=== PATIENT | female | born 1985 ===

== ENCOUNTER 2019-10-31 16:38 | Emergency (ER) | payer BC ==
--- OUTSIDE RECORDS SUMMARY | 2019-10-31 16:47 | XMS REPORT | Summary of Care ---
:1985 Author Organization [facility] Address [address] [facility] [place] [address] Care Team Providers Name Role Phone China Bean [facility] Primary Care Provider Reason for Visit Reason Comments Referral Sinus Problem for 2 weeks. Encounter Details Date Type Department Care Team Description 09/26/2019 Office Visit [facility] [place] Acute pharyngitis, unspecified etiology (Primary Dx); [address] WOODY Atkinson Mild persistent asthma without complication; [place] [address] [address] Acute bacterial sinusitis; [phone] Osteoarthritis of spine with radiculopathy, [place] [address] [phone] Allergies No Known Allergiesdocumented as of this encounter (statuses as of 09/26/2019) Medications Medication Sig Dispensed Refills Start End Status Date Date Levonorgestrel by Intrauterine 0 Active (MIRENA) 20 MCG/24HR route. Intrauterine IUD fluticasone (FLOVENT Take 2 Puffs by 1 Inhaler 5 03/15/20 Active HFA) 110 MCG/ACT inhalation 19 Inhalation TWICE DAILY. AerosolIndications: Mild persistent asthma without complication montelukast Take 1 Tab by 90 Tab 3 03/15/20 Active (SINGULAIR) 10 MG Oral mouth DAILY. 19 TabIndications: Mild persistent asthma without complication, Chronic seasonal allergic rhinitis hydrochlorothiazide Take 1 Tab by 90 Tab 1 04/22/20 Active (HCTZ, ORETIC) 25 MG mouth DAILY. 19 Oral TabIndications: Elevated blood pressure reading in office without diagnosis of hypertension, HTN (hypertension), benign albuterol HFA Take 2 Puffs by 3 Inhaler 3 09/26/20 Active (VENTOLIN HFA) 108 (90 inhalation 19 Base) MCG/ACT EVERY FOUR Inhalation Aero HOURS NEEDED SolnIndications: Mild (wheezing). persistent asthma without complication cyclobenzaprine Take 1 Tab by 30 Tab 0 09/26/20 Active (FLEXERIL) 10 MG Oral mouth THREE 19 TabIndications: TIMES DAILY. Osteoarthritis of spine with radiculopathy, cervical region nabumetone (RELAFEN) Take 1 Tab by 20 Tab 0 09/26/20 Active 500 MG Oral mouth TWICE 19 019 TabIndications: DAILY for 10 Osteoarthritis of days. spine with radiculopathy, cervical region Amoxicillin 500 MG Take 1 Tab by 20 Tab 0 09/26/20 Active Oral TabIndications: mouth TWICE 19 019 Acute pharyngitis, DAILY for 10 unspecified etiology, days. Acute bacterial sinusitis albuterol HFA Take 2 Puffs by 3 Inhaler 3 03/15/20 Discontinued (VENTOLIN HFA) 108 (90 inhalation 19 019 (Reorder) Base) MCG/ACT EVERY FOUR Inhalation Aero HOURS NEEDED SolnIndications: Mild (wheezing). persistent asthma without complication meloxicam (MOBIC) 7.5 Take 1 Tab by 60 Tab 1 08/26/20 Discontinued MG Oral Tab mouth TWO TIMES 19 019 DAILY NEEDED (pain). tizanidine (ZANAFLEX) Take 1 Tab by 90 Tab 1 08/26/20 Discontinued 4 MG Oral Tab mouth THREE 19 019 TIMES DAILY NEEDED (muscle spasm). documented as of this encounter (statuses as of 09/26/2019) Active Problems Problem Noted Date Osteoarthritis of spine with radiculopathy, cervical region 09/26/2019 HTN (hypertension), benign 04/22/2019 Overview: 02/2019 Seasonal allergies 10/02/2007 Asthma 10/02/2007 documented as of this encounter (statuses as of 09/26/2019) Immunizations Name Administration Dates Next Due DTAP Vaccine 03/24/1989, 08/10/1985 DTP 05/28/1984, 03/26/1984, 01/22/1984 Hepatitis B Vaccine 05/30/1999, 02/05/1996, 01/04/1996 MMR 12/20/1991, 02/28/1985 Meningococcal Vaccine 06/17/2002 OPV 03/24/1989, 07/10/1985, 03/26/1984, 01/22/1984 TETANUS & DIPHTHERIA TOXOID (OVER 7 07/29/2011 YRS) dT Vaccine 04/16/1995 documented as of this encounter Social History Tobacco Use Types Packs/Day Years Used Date Passive Smoke Exposure - Never Cigarettes 0 6 Started: 12/16/2011 Smoker Smokeless Tobacco: Never Used Alcohol Use Drinks/Week oz/Week Comments Yes 3 Standard drinks or equivalent 3.0 Weekends Sex Assigned at Date Recorded Not on file Job Start Date Occupation Industry Not on file Not on file Not on file Travel History Travel Start Travel End No recent travel history available. documented as of this encounter Last Filed Vital Signs Vital Sign Reading Time Taken Comments Blood Pressure 138/90 09/26/2019 11:49 AM EST Pulse 92 09/26/2019 11:49 AM EST Temperature 37.2 09/26/2019 11:49 AM C (98.9 EST F) Respiratory Rate 20 09/26/2019 11:49 AM EST Oxygen Saturation 99% 09/26/2019 11:49 AM EST Inhaled Oxygen Concentration - - Weight 85.1 kg (187 lb 11.2 oz) 09/26/2019 11:49 AM EST Height - - Body Mass Index 26.93 03/15/2019 9:28 AM EDT documented in this encounter Progress Notes China Bean FNP-BC - 09/26/2019 11:20 AM EST Demetria Del Angel [id number] 1985 09/26/2019 PCP: China Bean Chief Complaint Patient presents with Referral Sinus Problem for 2 weeks. HPI: Demetria Del Angel is a 33-y.o. female who presents today for follow-up with PCP for neck pain. 08/12/2019 she was seen by another provider in this office for left shoulder pain. The pain was suspected to be radicular and she had x-rays and treatment with Medrol Dosepak and muscle relaxants with gentle stretching recommended. There was some suspicion of rotator cuff involvement in the left shoulder. On 08/26/2019 she again followed up with the other provider in the office. Symptoms had improved and she found benefit from the steroid. MRI was ordered of the cervical spine and she was referred to physical therapy XR cervical spine IMPRESSION No evidence of fracture, or subluxation is seen. Reversal of cervical lordosis. MRI cervical spine: Again seen is straightening of the normal lordotic curvature in the cervical spine with reversal of the normal lordotic curvature at C4-C5. Cervical vertebral bodies demonstrate normal height and signal intensity. Craniocervical junction within normal limits. Cervical cord demonstrates normal signal intensity C2-C3: Disc unremarkable. No central nor foreign stenosis C3-C4: Disc desiccation. Shallow mixed spondylotic disc displacement. Partial effacement of the ventral subarachnoid space. No central nor foraminal stenosis. C4-C5: The level of dominant finding. Mixed spondylotic disc displacement with effacement of the ventral subarachnoid space and with mass effect on the cord, borderline cord compression, normal cord signal. Uncovertebral joint hypertrophy and bilateral foraminal stenosis. C5-C6, C6-C7: disc desiccation, shallow mixed spondylotic disc displacement, uncovertebral joint hypertrophy, and mild bilateral foraminal stenosis C7-T1: The level of codominant finding. Posterior left paracentral mixed spondylotic disc displacement, extending to the neural foramina, with left neural foraminal stenosis. Sh econ with with some benefit but still has left shooting left arm pain - can range from upper armto just shoulder - She has had sinus symptoms x a couple wekek s- she reports that the past 3 days have been wors eiwthchills, sore throat, she is medicating with over the counter medications -- nasal congestion , positive facial pain and pressure -- coughing up greenish yellow, no wheezing, positive fatigue -- She is Not sick often Patient Active Problem List Diagnosis Seasonal allergies Asthma HTN (hypertension), benign Osteoarthritis of spine with radiculopathy, cervical region Past Medical History: Diagnosis Date HTN (hypertension), benign 04/22/2019 Seasonal allergies 10/02/2007 Unspecified asthma(493.90) 10/02/2007 Current Medications: Current Outpatient Medications Medication albuterol HFA (VENTOLIN HFA) 108 (90 Base) MCG/ACT Inhalation Aero Soln fluticasone (FLOVENT HFA) 110 MCG/ACT Inhalation Aerosol hydrochlorothiazide (HCTZ, ORETIC) 25 MG Oral Tab Levonorgestrel (MIRENA) 20 MCG/24HR Intrauterine IUD meloxicam (MOBIC) 7.5 MG Oral Tab montelukast (SINGULAIR) 10 MG Oral Tab tizanidine (ZANAFLEX) 4 MG Oral Tab No Known Allergies Social History Tobacco Use Smoking status: Passive Smoke Exposure - Never Smoker Smokeless tobacco: Never Used Substance Use Topics Alcohol use: Yes Alcohol/week: 3.0 standard drinks Types: 3 Standard drinks or equivalent per week Comment: Weekends Drug use: Yes Types: Marijuana Comment: occassionally, 1x monthly Family History Problem Relation Age of Onset Thyroid Mother Hypertension Father Hypertension Brother Breast Cancer Paternal Aunt Cancer Maternal Grandmother bone Cancer Paternal Grandmother Family Status Relation Name Status Mo Alive Fa Alive Sis older Alive Bro older Alive Bro older Alive Bro older Alive PAunt (Not Specified) MGMo (Not Specified) PGMo (Not Specified) I have reviewed the patients allergies, past medical, surgical and family history with the patient. These were updated on 09/26/2019 12:59. No results found for this visit on 09/26/19. ROS: As per HPI, a comprehensive review of systems was otherwise negative. PE: BP 138/90 | Pulse 92 | Temp 98.9 F (37.2 C) | Resp 20 | Wt 187 lb 11.2 oz (85.1 kg) | SpO2 99% | BMI 26.93 kg/m CONST: Appears well, no distress, cooperative NEURO: alert, oriented, normal speech, no focal findings or movement disorder noted HEENT:Atraumatic, normocephalic,PERRLA and EOM's intact,conjunctiva pale, sclerae noninjected, bilateral TM's and external ear canals normal, nares normal and patent, no erythema, discharge or polyps, erythematous and tonsils hypertrophied with exudate, maxillary and frontal sinuses non tender to palpation NECK: full ROM, supple, no significant adenopathy CHEST: regular rate and rhythm, S1, S2 normal, no murmur, click, rub or gallop, clear to auscultation, no wheezes or rales and unlabored breathing ASSESSMENT/PLAN: Payal was seen today for referral and sinus problem. Diagnoses and all orders for this visit: Acute pharyngitis, unspecified etiology - TAKE amoxicillin 500 MG Oral Tab; Take 1 Tab by mouth TWICE DAILY for 10 days. The potential side effects of this medication have been discussed with the patient. Call if any significant problems with these are experienced. Mild persistent asthma without complication - REFILL REQUESTED albuterol HFA (VENTOLIN HFA) 108 (90 Base) MCG/ACT Inhalation Aero Soln; Take 2 Puffs by inhalation EVERY FOUR HOURS NEEDED ( wheezing). Acute bacterial sinusitis - TAKE amoxicillin 500 MG Oral Tab; Take 1 Tab by mouth TWICE DAILY for 10 days. Osteoarthritis of spine with radiculopathy, cervical region we will switch up anti-inflammatory and muscle relaxant see if we get improved relief of her symptoms while she waits for appointment with neurosurgery. - TAKE cyclobenzaprine (FLEXERIL) 10 MG Oral Tab; Take 1 Tab by mouth THREE TIMES DAILY. Patient advised not to operate heavy equipment, machinery or vehicle while taking muscle relaxant. -take nabumetone (RELAFEN) 500 MG Oral Tab; Take 1 Tab by mouth TWICE DAILY for 10 days. Risks associated with NSAID use reviewed Follow up prn Diagnosis and care plan discussed at length with patient is in agreement with this plan. and voices understanding with all questions answered. There are no Patient Instructions on file for this visit. WOODY Otoole 09/26/2019 12:59 documented in this encounter Plan of Treatment Date Type Specialty Care Team Description 10/03/2019 Office Visit Neurosurgery Camilo Otto MD [address] [place] [address] [phone] Health Maintenance Due Date Last Done Comments PAP SMEAR 06/20/2019 06/20/2016, 06/20/2016, 11/22/2014, Additional history exists DEPRESSION SCREENING 03/15/2020 03/15/2019 HIV SCREENING 03/15/2020 Postponed from 1998 (Patient refused) PNEUMOCOCCAL 0-64 YRS (1 of 03/27/2020 Postponed from 1 - PPSV23) 1989 (Other) MENINGOCOCCAL VACCINE IMM Aged Out 06/17/2002 No longer eligible based on patient's age to complete this topic HPV IMMUNIZATION SERIES Aged Out No longer eligible based on patient's age to complete this topic documented as of this encounter Goals Goal Patient Goal Associated Recent Patient-Stated? Author Type Problems Progress Blood Pressure Blood Pressure 138/90 No [place], < 140/90 (09/26/2019 [place], 11:49 AM EST) [facility]- Note: This is an individualized treatment (blood pressure) goal for Demetria Del Angel: Displayed above (on the left) is your goal for blood pressure control. Your most recent blood pressure is also shown above, on the right. You should try to achieve blood pressures that are lower than your goal listed above (on the left). Take all prescribed medications as Self-management No China Bean , [facility]- directed Note: This is an individualized self-management goal for Demetria Del Angel: Please take all prescribed medications as directed. 1. Do not skip doses. If you cannot afford your medications, talk with your doctor. 2. Use a pill reminder system such as a pill box if needed. Your pharmacist can help you with this. 3. Contact your Pharmacy 5 days before your medication runs out. If you cannot take your medications for any reasons, talk with your doctor. 4. Please bring all of your medication bottles and inhalers (or a list of all your medications/inhalers) with you to every visit. Potential barriers to meeting all of your care plan goals will continue to be addressed on an ongoing basis. documented as of this encounter Results Not on filedocumented in this encounter Visit Diagnoses Diagnosis Acute pharyngitis, unspecified etiology - Primary Mild persistent asthma without complication Unspecified asthma Acute bacterial sinusitis Acute sinusitis, unspecified Osteoarthritis of spine with radiculopathy, cervical region documented in this encounter Insurance Payer Benefit Plan / Subscriber ID Effective Dates Phone Address Type Group [employer] xxxxxxxxxxxx 2017-Present [employer] Name Account Type Relation to Date of Phone Billing Address Patient Demetria Del Angel Personal/Famil 1985 [address] ([address]) [address] [phone] [facility] (Work) [place] [phone] documented as of this encounter"
--- OUTSIDE RECORDS SUMMARY | 2019-10-31 16:47 | XMS REPORT | Summary of Care ---
:1985 Author Organization [facility] Address [address] [place] [address] Care Team Providers Name Role Phone China Bean [facility] Primary Care Provider Encounter Details Date Type Department Care Team Description 10/03/2019 Hospital Encounter [facility] Out[facility] [address] [address] Allergies No Known Allergiesdocumented as of this encounter (statuses as of 10/05/2019) Medications Medication Sig Dispensed Refills Start Date End Date Status Levonorgestrel (MIRENA) by Intrauterine 0 Active 20 MCG/24HR Intrauterine route. IUD fluticasone (FLOVENT Take 2 Puffs by 1 Inhaler 5 03/15/2019 Active HFA) 110 MCG/ACT inhalation TWICE Inhalation DAILY. AerosolIndications: Mild persistent asthma without complication montelukast (SINGULAIR) Take 1 Tab by 90 Tab 3 03/15/2019 Active 10 MG Oral mouth DAILY. TabIndications: Mild persistent asthma without complication, Chronic seasonal allergic rhinitis hydrochlorothiazide Take 1 Tab by 90 Tab 1 04/22/2019 Active (HCTZ, ORETIC) 25 MG mouth DAILY. Oral TabIndications: Elevated blood pressure reading in office without diagnosis of hypertension, HTN (hypertension), benign albuterol HFA (VENTOLIN Take 2 Puffs by 3 Inhaler 3 09/26/2019 Active HFA) 108 (90 Base) inhalation EVERY MCG/ACT Inhalation Aero FOUR HOURS SolnIndications: Mild NEEDED persistent asthma (wheezing). without complication cyclobenzaprine Take 1 Tab by 30 Tab 0 09/26/2019 Active (FLEXERIL) 10 MG Oral mouth THREE TIMES TabIndications: DAILY. Osteoarthritis of spine with radiculopathy, cervical region Amoxicillin 500 MG Oral Take 1 Tab by 20 Tab 0 09/26/2019 Active TabIndications: Acute mouth TWICE DAILY 9 pharyngitis, unspecified for 10 days. etiology, Acute bacterial sinusitis diclofenac (VOLTAREN) 75 Take 1 Tab by 20 Tab 0 09/27/2019 Active MG Oral Tab mouth TWICE DAILY 9 ECIndications: for 10 days. with Osteoarthritis of spine food with radiculopathy, cervical region gabapentin (NEURONTIN) Take 1 Cap by 90 Cap 0 10/03/2019 Active 300 MG Oral Cap mouth THREE TIMES DAILY. documented as of this encounter (statuses as of 10/05/2019) Active Problems Problem Noted Date Osteoarthritis of spine with radiculopathy, cervical region 09/26/2019 HTN (hypertension), benign 04/22/2019 Overview: 02/2019 Seasonal allergies 10/02/2007 Asthma 10/02/2007 documented as of this encounter (statuses as of 10/05/2019) Immunizations Name Administration Dates Next Due DTAP [...] of this encounter Last Filed Vital Signs Not on filedocumented in this encounter Plan of Treatment Date Type Specialty Care Team Description 10/24/2019 Office Visit Neurosurgery Camilo Otto MD [address] [place] [address] [phone] Health Maintenance Due Date Last Done Comments [...] Type Problems Progress Blood Pressure Blood Pressure 130/76 No [place], < 140/90 (10/03/2019 [place], 1:58 PM EST) [employer] Note: This is an individualized treatment (blood [...] medications as Self-management No China Bean , [employer] directed Note: This is an individualized self-management [...] ongoing basis. documented as of this encounter Procedures Procedure Name Priority Date/Time Associated Diagnosis Comments XR CERVICAL SPINE 3 Routine 10/03/2019 2:45 PM Neck pain Results for this VIEWS OR LESS EST procedure are in the results section. documented in this encounter Results XR CERVICAL SPINE 3 VIEWS OR LESS (10/03/2019 2:45 PM EST) Specimen Impressions Performed At No evidence of fracture, or subluxation is seen. Reversal of cervical lordosis. On Flexion and extension views the spine appears stable. Urgency: Routine. This is a routine medical imaging report. Recommendation: No specific imaging recommendation. Signed by Kylah Irving MD, MHA, FCPS on 10/04/2019 12:40 AM Narrative Performed At Procedure(s): XR CERVICAL SPINE 3 VIEWS OR LESS Date of service: 10/03/2019 2:35 PM Provided clinical information: 33 years, Female, "pain. Lateral and flex ex" Procedure and materials: Standard protocol. Comparison studies: MRI of the cervical spine 09/05/2019 Technique: Frontal, lateral, oblique, odontoid views of the cervical spine were obtained. Findings: Vertebral height and alignment appear unremarkable on lateral view. Reversal of cervical lordosis is seen. No evidence of fracture, or subluxation. On Flexion and extension views the spine appears stable. Odontoid view is adequate and normal. Lateral masses of C1 are normally oriented relative to the body of C2. Normal alignment of facet joints and no splaying of spinous processes. The prevertebral soft tissues are normal. Airway is patent. Procedure Note Interface, Rad Results - 10/04/2019 12:42 AM EST Procedure(s): XR CERVICAL SPINE 3 VIEWS OR LESS Date of service: 10/03/2019 2:35 PM Provided clinical information: 33 years, Female, "pain. Lateral and flex ex" Procedure and materials: Standard protocol. Comparison studies: MRI of the cervical spine 09/05/2019 Technique: Frontal, lateral, oblique, odontoid views of the cervical spine were obtained. Findings: Vertebral height and alignment appear unremarkable on lateral view. Reversal of cervical lordosis is seen. No evidence of fracture, or subluxation. On Flexion and extension views the spine appears stable. Odontoid view is adequate and normal. Lateral masses of C1 are normally oriented relative to the body of C2. Normal alignment of facet joints and no splaying of spinous processes. The prevertebral soft tissues are normal. Airway is patent. IMPRESSION No evidence of fracture, or subluxation is seen. Reversal of cervical lordosis. On Flexion and extension views the spine appears stable. Urgency: Routine. This is a routine medical imaging report. Recommendation: No specific imaging recommendation. Signed by Kylah Irving MD, MHA, FCPS on 10/04/2019 12:40 AM documented in this encounter Visit Diagnoses Diagnosis Neck pain Cervicalgia documented in this encounter Insurance Payer Benefit Plan / Subscriber ID Effective Dates Phone Address Type Group [facility] 2017-Present [employer] Guarantor Name Account Type Relation to Date of Phone Billing Address Patient Demetria Del Angel Personal/Famil 1985 [phone] [address] (Home) [phone] [place], ([place]) [place] [id number] documented as of this encounter
--- OUTSIDE RECORDS SUMMARY | 2019-10-31 16:47 | XMS REPORT | Summary of Care ---
:1985 Author Organization [facility] Address 1 [facility] [place] [address] Care Team Providers Name Role Phone China Baen SOLAR DEVELOPMENT ENGINEER- Primary Care Provider Reason for Visit Reason Comments Follow Up neck pain/left shoulder pain Encounter Details Date Type Department Care Team Description 10/24/2019 Office Visit [facility] Neurosurgery [place], Cervical disc [address] [facility] MD Camilo displacement ([place] [address] 1 [facility] Dx) [phone] [place] [address] [phone] Allergies No Known Allergiesdocumented as of this encounter (statuses as of 10/24/2019) Medications Medication Sig Dispensed Refills Start End [...] Osteoarthritis of spine with radiculopathy, cervical region gabapentin (NEURONTIN) Take 1 Cap by 90 Cap 0 10/24/20 Active 300 MG Oral Cap mouth THREE 19 TIMES DAILY. gabapentin (NEURONTIN) Take 1 Cap by 90 Cap 0 10/03/20 Discontinued 300 MG Oral Cap mouth THREE 19 019 (Reorder) TIMES DAILY. documented as of this encounter (statuses as of 10/24/2019) Active Problems Problem Noted Date Osteoarthritis of spine with radiculopathy, cervical region 09/26/2019 HTN (hypertension), benign 04/22/2019 Overview: 02/2019 Seasonal allergies 10/02/2007 Asthma 10/02/2007 documented as of this encounter (statuses as of 10/24/2019) Immunizations Name Administration Dates Next Due DTAP [...] Sign Reading Time Taken Comments Blood Pressure 128/72 10/24/2019 9:00 AM EST Pulse - - Temperature - - Respiratory Rate - - Oxygen Saturation - - Inhaled Oxygen Concentration - - Weight 86.6 kg (191 lb) 10/24/2019 9:00 AM EST Height 177.8 cm (5' 10") 10/24/2019 9:00 AM EST Body Mass Index 27.41 10/24/2019 9:00 AM EST documented in this encounter Progress Notes Camilo Otto MD - 10/24/2019 8:50 AM EST PATIENT: Demetria Del Angel : 1985 DATE OF SERVICE: 10/24/2019 REFERRING PRACTITIONER: Camilo Otto PRIMARY CARE PROVIDER: China Bean CHIEF COMPLAINT: Chief Complaint Patient presents with Follow Up neck pain/left shoulder pain HISTORY OF PRESENT ILLNESS: Mrs. 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 Fortunately most of her symptoms have improved with gabapentin. She is continuing to do the neck stretches at home and will continue with physical therapy in the coming weeks. She seems pleased with the result thus far and I would like to see her back in 6 weeks. Past Medical History: Diagnosis Date HTN (hypertension), benign 04/22/2019 Seasonal allergies 10/02/2007 Unspecified asthma(493.90) 10/02/2007 History reviewed. No pertinent surgical history. Family History Problem Relation Age of Onset Thyroid Mother Hypertension Father Hypertension Brother Breast Cancer Paternal Aunt Cancer Maternal Grandmother bone Cancer Paternal Grandmother Social History Socioeconomic History Marital status: Single Spouse name: Not on file Number of children: Not on file Years of education: Not on file Highest education level: Not on file Occupational History Not on file Social Needs Financial resource strain: Not on file Food insecurity: Worry: Not on file Inability: Not on file Transportation needs: Medical: Not on file Non-medical: Not on file Tobacco Use Smoking status: Passive Smoke Exposure - Never Smoker Smokeless tobacco: Never Used Substance and Sexual Activity Alcohol use: Yes Alcohol/week: 3.0 standard drinks Types: 3 Standard drinks or equivalent per week Comment: Weekends Drug use: Yes Types: Marijuana Comment: occassionally, 1x monthly Sexual activity: Yes Partners: Male control/protection: I.U.D. Lifestyle Physical activity: Days per week: Not on file Minutes per session: Not on file Stress: Not on file Relationships Social connections: Talks on phone: Not on file Gets together: Not on file Attends nondenominational service: Not on file Active member of club or organization: Not on file Attends meetings of clubs or organizations: Not on file Relationship status: Not on file Intimate partner violence: Fear of current or ex partner: Not on file Emotionally abused: Not on file Physically abused: Not on file Forced sexual activity: Not on file Other Topics Concern Back Care Not Asked Bike Helmet Not Asked Blood Transfusions Not Asked Caffeine Concern Not Asked Exercise Not Asked Hobby Hazards Not Asked International Travel Not Asked Service Not Asked Occupational Exposure Not Asked Seat Belt Not Asked Self-Exams Not Asked Sleep Concern Not Asked Special Diet Not Asked Stress Concern Not Asked Weight Concern Not Asked Social History Narrative Single -- SO male -- lives with 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 Psychological ROS: negative Ophthalmic ROS: negative ENT ROS: negative Hematological and Lymphatic ROS: negative Endocrine ROS: negative Respiratory ROS: no cough, shortness of breath, or wheezing Cardiovascular ROS: no chest pain or dyspnea on exertion Gastrointestinal ROS: no abdominal pain, change in bowel habits, or black or bloody stools Genito-Urinary ROS: negative Musculoskeletal ROS: negative Neurological ROS: negative IMPRESSION / PLAN: ICD-9-CM ICD-10-CM 1. Cervical disc displacement 722.0 M50.20 Author: Camilo Otto MD 10/24/2019 09:13 documented in this encounter Plan of Treatment Date Type Specialty Care Team Description 12/05/2019 Office Visit Neurosurgery Camilo Otto MD 1 [place] [address] [phone] Health Maintenance Due Date Last Done Comments [...] Type Problems Progress Blood Pressure Blood Pressure 128/72 No [place], < 140/90 (10/24/2019 [place], 9:00 AM EST) SOLAR DEVELOPMENT ENGINEER-BC Note: This is an individualized treatment (blood [...] medications as Self-management No China Bean , SOLAR DEVELOPMENT ENGINEER-BC directed Note: This is an individualized self-management [...] filedocumented in this encounter Visit Diagnoses Diagnosis Cervical disc displacement - Primary Displacement of cervical intervertebral disc without myelopathy documented in this encounter Insurance Payer Benefit Plan / Subscriber ID Effective Dates Phone Address Type Group LIZZ AHUMADABS LIZZ AHUMADABS xxxxxxxxxxxx 2017-Present [employer] Guarant[employer] Name Account Type Relation to Date of Phone Billing Address Patient Demetria Del Angel Personal/Famil 1985 [phone] ([address]) [address] [phone] [place], (Work) [place] [address] documented as of this encounter
--- OUTSIDE RECORDS SUMMARY | 2019-10-31 16:47 | XMS REPORT | Summary of Care ---
:1985 Author Organization [facility] Address [address] [place] [address] Care Team Providers Name Role Phone China Bean [facility] Primary Care Provider Reason for Visit Reason Comments Neurologic Problem currently in PT in [place], Neck Pain Arm Pain left with occ numbness and tingling Refer to Department Only (Routine) Status Reason Specialty Diagnoses / Referred By Referred To Procedures Contact Contact Closed NEUROSURGERY / Diagnoses Paresthesia and pain of left extremity Neck pain Johnnie Bean [facility] [address] [place] [address] Encounter Details Date Type Department Care Team Description 10/03/2019 Office Visit [facility] [place], Neck pain (Primary Dx); 1 Warren Page MD Paresthesia and pain of left extremity [place] [phone] 1 Warren Gomez [phone] [place] [address] Allergies No Known Allergiesdocumented as of this encounter (statuses as of 10/03/2019) Medications Medication Sig Dispensed Refills Start Date [...] as of this encounter (statuses as of 10/03/2019) Active Problems Problem Noted Date Osteoarthritis of spine with radiculopathy, cervical region 09/26/2019 HTN (hypertension), benign 04/22/2019 Overview: 02/2019 Seasonal allergies 10/02/2007 Asthma 10/02/2007 documented as of this encounter (statuses as of 10/03/2019) Immunizations Name Administration Dates Next Due DTAP [...] Started: 12/16/2011 Smoker Smokeless Tobacco: Never Used Tobacco Cessation: Counseling Given: No Alcohol Use Drinks/Week oz/Week Comments Yes 3 Standard drinks or equivalent 3.0 Weekends Sex Assigned at Date Recorded Not on file Job Start Date Occupation Industry Not on file Not on file Not on file Travel History Travel Start Travel End No recent travel history available. documented as of this encounter Last Filed Vital Signs Vital Sign Reading Time Taken Comments Blood Pressure 130/76 10/03/2019 1:58 PM EST Pulse - - Temperature - - Respiratory Rate - - Oxygen Saturation - - Inhaled Oxygen Concentration - - Weight 84.8 kg (187 lb) 10/03/2019 1:58 PM EST Height 177.8 cm (5' 10") 10/03/2019 1:58 PM EST Body Mass Index 26.83 10/03/2019 1:58 PM EST documented in this encounter Progress Notes Camilo Otto MD - 10/03/2019 2:00 PM EST PATIENT: Demetria Del Angel : 1985 DATE OF SERVICE: 10/03/2019 REFERRING PRACTITIONER: China Bean PRIMARY CARE PROVIDER: China Bean CHIEF COMPLAINT: Chief Complaint Patient presents with Neurologic Problem currently in in [place], Neck Pain Arm Pain left with occ numbness and tingling HISTORY OF PRESENT ILLNESS: Mrs. Calvert is a 33-year-old female with a several months of pain predominantly in the neck and then the left medial scapular area and the left arm. At times she was having some numbness in the hand but this seems improved. She has been doing physical therapy with some improvement in the pain but it has persisted. She denies right-sided symptoms. She denies lower extremity symptoms or bowel or bladder difficulty. Her MRI scan demonstrates a mild to moderate central and left disc protrusion at the C4-5 level. Otherwise her scan looks pretty good. Plain films demonstrate moderate degenerative changes with some loss of lordosis. 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 From [facility] Current Outpatient Medications Medication albuterol HFA (VENTOLIN HFA) 108 (90 Base) MCG/ACT Inhalation Aero Soln Amoxicillin 500 MG Oral Tab cyclobenzaprine (FLEXERIL) 10 MG Oral Tab diclofenac (VOLTAREN) 75 MG Oral Tab EC fluticasone (FLOVENT HFA) 110 MCG/ACT Inhalation Aerosol hydrochlorothiazide (HCTZ, ORETIC) 25 MG Oral Tab Levonorgestrel (MIRENA) 20 MCG/24HR Intrauterine IUD montelukast (SINGULAIR) 10 MG Oral Tab No Known Allergies REVIEW OF SYSTEMS: Psychological ROS: negative Ophthalmic ROS: negative ENT ROS: negative Hematological and Lymphatic ROS: negative Endocrine ROS: negative Respiratory ROS: no cough, shortness of breath, or wheezing Cardiovascular ROS: no chest pain or dyspnea on exertion Gastrointestinal ROS: no abdominal pain, change in bowel habits, or black or bloody stools Genito-Urinary ROS: negative Musculoskeletal ROS: See HPI Neurological ROS: See HPI PHYSICAL EXAMINATION: BP 130/76 | Ht 5' 10" (1.778 m) | Wt 187 lb (84.8 kg) | BMI 26.83 kg/m Body mass index is 26.83 kg/m. GENERAL: alert, oriented, no acute distress. SKIN: normal, no rashes or abnormalities noted. HEENT: conjunctivae are clear, nasopharynx is with mild edema, pink mucosa, and clear secretions, oropharynx is clear. NECK: Normal range of motion LOWER BACK: Normal range of motion LUNGS: clear to auscultation bilaterally. HEART: Regular rate and rhythm without murmurs or gallops. ABDOMEN: Normal bowel sounds without distension NEUROLOGICAL: CONSTITUTIONAL: The patient appears to be in no acute distress. MUSCULOSKELETAL: Station and gait are normal. Motor tone is normal in both upper and lower extremities. Upper Extremity Deltoid Tricep Bicep Finger Extension Wrist Extension Intrinsics Restaurant Recruiter Right 5/5 5/5 5/5 5/5 5/5 5/5 5/5 Left 5/5 5/5 5/5 5/5 5/5 5/5 5/5 Lower Extremity Hip Flexion Knee Flexion Knee Extension Dorsi Flexion Plantar Flexion EHL Right 5/5 5/5 5/5 5/5 5/5 5/5 Left 5/5 5/5 5/5 5/5 5/5 5/5 NEUROLOGICAL: Oriented to time, place, and person. Memory appears to be grossly intact. Language function appears to be normal with normal receptive and motor speech function. CRANIAL NERVES: 2nd cranial nerve: Intact 3rd, 4th, and 6th cranial nerves: pupils equal round and reactive to light. Full EOMs. 5th cranial nerve: Intact 7th cranial nerve: Intact 8th cranial nerve: Intact 9th, 10th cranial nerves: Intact 11th cranial nerve: Intact. 12th cranial nerve: Intact SENSATION: Intact throughout to light touch and pin prick. REFLEXES: Biceps BR Triceps Knee Ankle Right 2+ 2+ 2+ 2+ 2+ Left 2+ 2+ 2+ 2+ 2+ Willis's sign: Negative Babinski: Negative COORDINATION: Lczqur-[id number] examination done well. IMPRESSION / PLAN: ICD-9-CM ICD-10-CM 1. Neck pain 723.1 M54.2 REFER TO [facility] XR CERVICAL SPINE 3 VIEWS OR LESS 2. Paresthesia and pain of left extremity 729.5 M79.609 REFER TO [facility] 782.0 R20.2 Medical decision making: Flexion-extension x-rays reveal relatively normal excursion with a baselineloss of lordosis in neutral. I think the patient has left arm pain likely from the central and leftdisc protrusion at C4-5. I have recommended that she continue with physical therapy and begin gabapentin. I would like to see her [facility] 2 to 3 weeks. If she does not improve she could consider a surgical treatment such as cervical arthroplasty. Author: Camilo Otto MD 10/03/2019 14:13 documented in this encounter Plan of Treatment Name Type Priority Associated Diagnoses Date/Time XR CERVICAL SPINE 3 Imaging Routine Neck pain 10/03/2019 2:45 PM EST VIEWS OR LESS Name Type Priority Associated Diagnoses Order Schedule XR CERVICAL SPINE 3 Imaging Routine Neck pain Expected: 10/03/2019, VIEWS OR LESS Expires: 10/02/2020 Health Maintenance Due Date Last Done Comments [...] < 140/90 (10/03/2019 [place], 1:58 PM EST) [facility]- Note: This is an individualized [...] medications as Self-management No China Bean , STOCK BROKER SUPERVISOR-BC directed Note: This is an individualized self-management [...] filedocumented in this encounter Visit Diagnoses Diagnosis Neck pain - Primary Cervicalgia Paresthesia and pain of left extremity Pain in limb documented in this encounter Insurance Payer Benefit Plan / Subscriber ID Effective Dates Phone Address Type Group LIZZ AHUMADABS GUILLE ZITABS xxxxxxxxxxxx 2017-Present [employer] Guarant[employer] Name Account Type Relation to Date of Phone Billing Address Patient Demetria Del Angel Personal/Famil 1985 [phone] ([address]) [address] [phone] [facility] (Work) [id number] documented as of this encounter
--- NOTE | 2019-10-31 16:59 | UC ---
Throat Pain/Nasal Kalyan HPI - HPI Summary HPI Summary: 33 year old female with c/o sore throat, 03/25, starting on Thursday. Increased pain with swallowing. no fever, chills, no sinus/ cough, shortness of breath, ear pain/ GI symtpoms. SYmptoms are improving today. was on amoxicillin ~ 1 month ago for sinus symptoms. - History of Current Complaint Stated Complaint: THROAT PAIN Time Seen by Provider: 10/31/19 16:49 Hx Obtained From: Patient ?: No Onset/Duration: Sudden Onset Severity: Mild Cough: None Associated Signs & Symptoms: Positive: Dysphagia - Allergies/Home Medications Allergies/Adverse Reactions: Allergies Allergy/AdvReac Type Severity Reaction Status Date / Time No Known Allergies Allergy Verified 10/31/19 16:54 Home Medications: Home Medications Albuterol HFA INHALER* [Ventolin HFA Inhaler*] 1 puff INH Q6HR 10/31/19 [ History Confirmed 10/31/19] Gabapentin TAB(NF) [Neurontin 600 mg TAB(NF)] 300 mg PO TID 10/31/19 [History Confirmed 10/31/19] Hydrochlorothiazide TAB* [Hydrodiuril TAB*] 25 mg PO DAILY 10/31/19 [History Confirmed 10/31/19] Montelukast Sodium TAB* [Singulair 10 MG TAB*] 10 mg PO DAILY 10/31/19 [History Confirmed 10/31/19] PMH/Surg Hx/FS Hx/Imm Hx Previously Healthy: Yes - Social History Occupation: Employed Full-time Review of Systems All Other Systems Reviewed And Are Negative: Yes Constitutional: Negative: Fever, Chills, Fatigue ENT: Positive: Sore Throat. Negative: Ear Ache, Nasal Discharge, Sinus Congestion, Sinus Pain/Tenderness Respiratory: Negative: Shortness Of Breath, Cough Is Patient Immunocompromised?: No Physical Exam Triage Information Reviewed: Yes Appearance: Well-Appearing, No Pain Distress, Well-Nourished Vital Signs Reviewed: Yes Eyes: Positive: Conjunctiva Clear ENT: Positive: Hearing grossly normal, Pharyngeal erythema - erythema extending in irregular pattern to soft palate with small superificial ulceration noted mid soft palpate., TMs normal, Tonsillar swelling - mild grade II appears chronic, Tonsillar exudate - mild b/l, Uvula midline. Negative: Sinus tenderness Neck: Positive: Supple, Nontender, No Lymphadenopathy. Negative: Nuchal Rigidity, Enlarged Nodes @ Psychological Exam: Normal Skin Exam: Normal Skin: Negative: Rashes Throat Pain/Nasal Course/Dx - Course Course Of Treatment: Dr. Allen examined patient with me. Cultures sent, will continue to follow. LIkely viral in etiology. - Throat cultures obtained- Results will be back within 1-2 days. - Over the counter medications for symptoms - Return or go to ER with increased pain, difficulty swallowing, throat swelling , fever > 101, neck stiffness. - Increase fluids - Differential Dx/Diagnosis Differential Diagnosis/HQI/PQRI: Pharyngitis Provider Diagnosis: Pharyngitis Discharge ED - Sign-Out/Discharge Documenting (check all that apply): Patient Departure All imaging exams completed and their final reports reviewed: No Studies - Discharge Plan Condition: Good Disposition: HOME Patient Education Materials: Pharyngitis (ED) Referrals: No Primary Care Phys,NOPCP [Primary Care Provider] - [facility] [Outside] Additional Instructions: - Throat cultures obtained- Results will be back within 1-2 days. - Over the counter medications for symptoms - Return or go to ER with increased pain, difficulty swallowing, throat swelling , fever > 101, neck stiffness. - Increase fluids - Billing Disposition and Condition Condition: GOOD Disposition: Home
--- NOTE | 2019-11-03 15:50 | UC ---
- Progress Note Progress Note: Throat culture revealed normal franklin. Patient was not given antibiotics, so no discontinuation necessary. No further treatment required at this time. Luz Maria Duarte PA-C 11/03/19 1550 Course/Dx - Diagnoses Provider Diagnoses: Pharyngitis Discharge ED - Sign-Out/Discharge Documenting (check all that apply): Post-Discharge Follow Up All imaging exams completed and their final reports reviewed: No Studies - Discharge Plan Condition: Good Disposition: HOME Patient Education Materials: Pharyngitis (ED) Referrals: [facility] [Outside] No Primary Care Phys,NOPCP [Primary Care Provider] - Additional Instructions: - Throat cultures obtained- Results will be back within 1-2 days. - Over the counter medications for symptoms - Return or go to ER with increased pain, difficulty swallowing, throat swelling , fever > 101, neck stiffness. - Increase fluids - Billing Disposition and Condition Condition: GOOD Disposition: Home
== END 2019-10-31 17:46 | disposition home or self-care (01) ==
LOC: UCEAST 16:38
DX: J02.9 Acute pharyngitis, unspecified (principal)
CPT/HCPCS: 87070; 87651; 99201; G0463